=== PATIENT | male | born 1945 | race Caucasian/White ===

== ENCOUNTER → 2017-04-04 | Outpatient (CLI) | payer MEDICARE, OTHER | LOC: RAD 09:00 | DX: R10.9 Unspecified abdominal pain (principal); R11.0 Nausea; K21.9 Gastro-esophageal reflux disease without esophagitis | CPT/HCPCS: 74246 ==

== ENCOUNTER → 2022-06-13 | Outpatient (CLI) | payer MEDICARE, OTHER ==
[~2022-06-13] MED LIST: ALL DAY ALLERGY10 M1 PO; ALPRAZOLAM0.5 MG PO; ASPIRIN81 MG PO; BRILINTA90 MG PO; CATAPRES 0.1MG0.1 MG PO; HYDROCHLOROTHIA25 MG PO; LIPITOR TAB 1010 MG PO; LISINOPRIL20 MG PO; METOPROLOL SUCC50 MG PO; NEXIUM40 MG PO; NITROSTAT0.4 MG SL; NORVASC10 MG PO; OXYCODONE HCL15 MG PO; SEROQUEL100 MG PO; SPIRIVA HANDIH18 MCG INH; VOLTAREN EC 7575 MG PO
== END ==
LOC: HEART 5 15:00
DX: I11.9 Hypertensive heart disease without heart failure (principal)
CPT/HCPCS: 93306

== ENCOUNTER → 2022-06-14 | Outpatient (CLI) | payer MEDICARE, OTHER | LOC: HEART 5 13:52 | DX: I49.9 Cardiac arrhythmia, unspecified (principal) ==